=== PATIENT | female | born 1945 | race Two or more races ===

== ENCOUNTER 2018-12-03 10:42 | Outpatient (CLI) | payer OTHER | END 2018-12-03 10:52 | disposition home or self-care (01) | LOC: SONOGRAMA 10:42 → MAMO-SONO 11:45 | DX: M25.511 Pain in right shoulder (principal); M25.512 Pain in left shoulder ==

== ENCOUNTER 2020-12-31 11:32 | Outpatient (CLI) | payer OTHER | END 2020-12-31 11:36 | disposition home or self-care (01) | LOC: RAD 11:32 | PROVIDERS: ATTEND Orthopaedic Surgery | DX: M25.561 Pain in right knee (principal); M25.562 Pain in left knee ==

== ENCOUNTER 2023-02-09 08:08 | Outpatient (CLI) | payer OTHER | END 2023-02-09 08:31 | disposition home or self-care (01) | LOC: RX STUDY 08:08 | PROVIDERS: ATTEND Internal Medicine Gastroenterology | DX: R10.13 Epigastric pain (principal) ==

== ENCOUNTER 2023-08-11 05:45 | Day surgery (SDC) | payer OTHER ==
[2023-08-07 08:34] LABS: HEMATOCRIT 37.4 % (36.0-45.00); HEMOGLOBIN 12.7 g/dL (12.0-15.00); MEAN CELL VOLUME 89.9 fL (80.00-100.00); MEAN CORPUSCULAR HEMOGLOBIN 30.5 pg (27.00-32.0); MEAN CORPUSCULAR HGB CONC 33.9 g/dl (32.0-36.0); PLATELET COUNT 252 K/uL (150-450); RED BLOOD COUNT 4.16 M/uL (4.00-6.00)
[2023-08-07 08:47] LABS: PH,URINE 6.5 (5.0-8.0); URINE APPEARANCE Clear; URINE BILIRRUBIN Negative (NEGATIVE); URINE BLOOD Negative; URINE COLOR Yellow; URINE GLUCOSE Negative (NEGATIVE); URINE LEUKOCYTE Negative; URINE NITRATE Negative; URINE PROTEIN Negative (NEGATIVE); URINE RBC 3.3 uL (0.0-20.8); URINE UROBILINOGEN 0.2 E.U./dl
[2023-08-07 08:52] LABS: URINE BACTERIA 3.7 uL (0.0-1933); URINE EPITHELIAL CELLS 0.3 uL (0.0-38.8)
[2023-08-07 08:59] LABS: INR 0.95; PARTIAL THROMBOPLASTIN TIME 23.1 SECONDS (22.0-34.0)
[2023-08-07 09:05] LABS: ALBUMIN 3.7 gm/dL (3.4-5.0); BILIRUBIN TOTAL 0.36 mg/dL (0.3-1.2); CALCIUM 9.7 mg/dL (8.5-10.1); CREATININE SERUM 0.76 mg/dL (0.55-1.02); GFR 73.99; GLOBULINA 3.7 G/DL (2.4-3.5); POTASSIUM 3.8 mEq/L (3.5-5.1); TOTAL PROTEIN 7.4 gm/dL (6.4-8.2)
== END 2023-08-11 16:50 | disposition home or self-care (01) ==
LOC: CIR.AMB 05:45
PROVIDERS: ATTEND Orthopaedic Surgery Hand Surgery
DX: M18.11 Unilateral primary osteoarthritis of first carpometacarpal joint, right hand (principal); Z20.822 Contact with and (suspected) exposure to COVID-19; E11.9 Type 2 diabetes mellitus without complications; E03.9 Hypothyroidism, unspecified